=== PATIENT | male | born 1965 | race Caucasian/White ===

== ENCOUNTER 2018-05-01 19:26 | Emergency (ER) | payer BC, OTHER ==
[~2018-05-01] VITALS: Ht 180.3 cm; Wt 97.5 kg
[2018-05-01] MEDS ORDERED: NORFLEX100 MG PO (19:57)
[2018-05-01] MEDS ORDERED: NORCO 5-325 TA1 EACH PO (19:57)
[2018-05-01] MEDS ORDERED: IBUPROFEN 600600 M1 PO (19:57)
[2018-05-01 20:27] VITALS: BP 143/79
== END 2018-05-01 20:28 | disposition home or self-care (01) ==
LOC: ER 19:26
DX: S06.9X1A Unspecified intracranial injury with loss of consciousness of 30 minutes or less, initial encounter (principal); S80.212A Abrasion, left knee, initial encounter; S80.211A Abrasion, right knee, initial encounter; W18.39XA Other fall on same level, initial encounter; Y92.89 Other specified places as the place of occurrence of the external cause; Y93.89 Activity, other specified; Y99.8 Other external cause status